=== PATIENT | male | born 1995 | race Caucasian/White ===

== ENCOUNTER 2022-04-11 03:24 | Emergency (ER) | payer OTHER, SELFPAY ==
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
[2022-04-11 03:28] VITALS: BP 160/80; PULSE 108; O2SAT 96
[2022-04-11 03:40] VITALS: BP 148/77; PULSE 106; RESP 18; TEMP 37; O2SAT 97
--- OUTSIDE RECORDS SUMMARY | 2022-04-11 03:55 | XMS_ITS | Continuity of Care Document ---
:1995 Author Organization [facility] Address [address] [place] [address]- Care Team Providers Name Role Phone Gold Pinon MD, Pradip Tomlinson Primary Care Physician [phone] [facility] Date(s): 04/23/20 - 04/23/[address] [address]- Discharge Disposition: A-D/C Home Attending Physician: Teodoro Kruse MD Admitting Physician: Teodoro Kruse MD Referring Physician: Not on Staff, Referring MD Allergies, Adverse Reactions, Alerts Substance Reaction Severity Status NKA Active Immunizations Given and Recorded Vaccine Date Status Refusal Reason Varicella Virus Vaccine 02/03/08 Given Varicella Virus Vaccine 02/15/98 Given Tet/Diphth/Acel, Pertussis (oldterm)1 02/03/08 Given Meningococcal Conjugate Vaccine 02/03/08 Given Measles/Mumps/Rubella Virus Vaccine 12/02/01 Given Measles/Mumps/Rubella Virus Vaccine 02/15/98 Given Poliovirus Vaccine, Inactivated 12/02/01 Given Poliovirus Vaccine, Inactivated2 06/28/98 Given Poliovirus Vaccine, Inactivated 97 Given Poliovirus Vaccine, Inactivated 97 Given Diphth/Pertussis,Acel/Tetanus (oldterm) 12/02/01 Given Diphth/Pertussis,Acel/Tetanus (oldterm) 06/28/98 Given Diphth/Pertussis,Acel/Tetanus (oldterm) 97 Given Diphth/Pertussis,Acel/Tetanus (oldterm) 97 Given Diphth/Pertussis,Acel/Tetanus (oldterm) 97 Given Haemophilus B Conj Vaccine (oldterm) 06/28/98 Given Haemophilus B Conj Vaccine (oldterm) 97 Given Haemophilus B Conj Vaccine (oldterm) 97 Given Haemophilus B Conj Vaccine (oldterm) 97 Given Hepatitis B Vaccine (old term) 97 Given Hepatitis B Vaccine (old term) 97 Given Hepatitis B Vaccine (old term) 97 Given 1Admin Note: VIS 11/25/20052Admin Note: POLIO(oral) Medications Adderall XR 30 mg oral capsule, extended release 1 capsule, By Mouth, Daily in AM, # 60 capsule, 0 Refills, ADHD Start Date: 06/19/09 Status: OrderedDebrox 6.5% solution 5 drops, Ears, Both, 3 times a day, for 7 days, # 30 mL, 0 Refills, Acute 04/30/20 21:41:00 EST, 04/23/20 21:41:00 EST, Solution, [facility]/pharmacy #[id number], Partial fill upon patient request if the prescription is for a schedule II opioid drug., 5 drops Ears... Start Date: 04/23/20 Stop Date: 04/30/20 Status: OrderedDebrox Earwax Removal Kit 6.5% Otic Solution 5 drops, Ears, Both, 3 times a day, for 10 days, # 15 mL, 0 Refills, Acute 05/03/20 21:40:00 EST, 04/23/20 21:40:00 EST, Otic Solution, [id number], Partial fill upon patient request ifthe prescription is for a schedule II opioid drug... Start Date: 04/23/20 Stop Date: 05/03/20 Status: OrderedFioricet 325 mg-50 mg-40 mg oral tablet 2 tablet, By Mouth, Every 4 hours, # 30 tablet, 0 Refills, Maintenance, 10/01/14 13:02:39 Start Date: 10/01/14 Status: OrderedToradol Inj 15 mg, Injection, IV Push Slowly, Once, STAT, 04/23/20 19:53:00 EST, Stop date 04/23/20 19:53:00 EST Start Date: 04/23/20 Stop Date: 04/23/20 Status: Completed Problem List Condition Effective Dates Status Health Status Informant Attention deficit disorder(Confirmed) Active Finger fracture(Confirmed) Active Infection- 3rd digit R hand(Confirmed) Active Migraine without aura(Confirmed) Active Somnambulism(Confirmed) Active Vitiligo(Confirmed) Active Vital Signs Most recent to oldest 1 2 3 [Reference Range]: Height 172 cm 172 cm 172 cm (04/23/20 8:29 PM) (04/23/20 7:04 PM) (04/23/20 7:0 2 PM) Weight 68.7 kg 68.7 kg 68.7 kg (04/23/20 8:29 PM) (04/23/20 7:04 PM) (04/23/20 7:0 2 PM) Oxygen Saturation [94-100 %] 98 % 98 % 99 % (04/23/20 10:00 PM) (04/23/20 8:29 PM) (04/23/20 7: 02 PM) Pulse Rate [55-90 bpm] 86 bpm 97 bpm 94 bpm (04/23/20 10:00 PM) *H* *H* (04/23/20 8:29 PM) (04/23/20 7:02 PM) Body Mass Index [18.5-24.99] 23.22 23.22 (04/23/20 8:29 PM) (04/23/20 7:02 PM) Blood Pressure [90-138/55-84 126/79 mm Hg 124/65 mm Hg 127 /98 mm Hg mm Hg] (04/23/20 10:00 PM) (04/23/20 8:29 PM) (04/23/20 7: 02 PM) Respiratory Rate [16-30 18 br/min 16 br/min 16 br/mi n br/min] (04/23/20 10:00 PM) (04/23/20 8:53 PM) (04/23/20 8: 29 PM) Temperature [96.8-100.4 DegF] 97.7 DegF (04/23/20 7:02 PM) Mode of Delivery (Oxygen) Room air Room air Room a ir (04/23/20 10:00 PM) (04/23/20 8:29 PM) (04/23/20 7: 02 PM) Blood pressure sites Arm, left Arm, left Arm, left (04/23/20 10:00 PM) (04/23/20 8:29 PM) (04/23/20 7: 02 PM) Temperature Route Temporal (04/23/20 7:02 PM) Dry Weight 68.7 kg 68.7 kg 68.7 kg (04/23/20 8:29 PM) (04/23/20 7:04 PM) (04/23/20 7:0 2 PM) Weight Obtained Via Standing scale (04/23/20 7:02 PM) Dry Weight Obtained Via Standing scale (04/23/20 7:02 PM) Social History Social History Type Response Smoking Status Current every day smoker entered on: 07/13/14 Sex
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
[2022-04-11 05:55] VITALS: BP 116/69; PULSE 71; RESP 16; TEMP 36.4; O2SAT 96
[2022-04-11 06:31] VITALS: BP 120/78; PULSE 70; RESP 18; O2SAT 98
== END 2022-04-11 06:35 | disposition home or self-care (01) ==
PROVIDERS: Emergency Provider Internal Medicine; PCP Internal Medicine
DX: S09.90XA Unspecified injury of head, initial encounter (principal); Y04.2XXA Assault by strike against or bumped into by another person, initial encounter; Y93.89 Activity, other specified; Y92.9 Unspecified place or not applicable; Y99.9 Unspecified external cause status
CPT/HCPCS: 70450; 99284

== ENCOUNTER 2023-10-25 18:49 | Emergency (ER) | payer OTHER, SELFPAY ==
--- NOTE | ~2023-10-25 | XR_ITS ---
EXAMINATION: XR LUMBOSACRAL SPINE CLINICAL INFORMATION: Pain. Injury. COMPARISON: None available. TECHNIQUE: Three views of the lumbosacral spine. FINDINGS: The vertebral bodies and posterior elements are normal. The disc spaces are preserved and the vertebral alignment is normal. The paraspinal soft tissues are normal. XR/XR lumbar spine 2-3V IMPRESSION: Unremarkable examination.
[2023-10-25 19:02] VITALS: BP 122/72; PULSE 84; RESP 18; TEMP 36.7; O2SAT 98; BMI 26.1
--- NOTE | 2023-10-25 19:04 | ED.GENADULT ---
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 felt pop in his lower back this happened just prior to arrival no radiation of the pain no paresthesia in the lower no history of prior low back pain Related Data Previous Rx's ?Medication ?Instructions ?Recorded cyclobenzaprine 10 mg tablet 10 mg PO Q8H #20 tabs 10/25/23 tramadol 50 mg tablet 50 mg PO Q6H PRN pain #20 tabs 10/25/23 Allergies Allergy/AdvReac Type Severity Reaction Status Date / Time aspirin [ASPIRIN] Allergy Unknown GI UPSET Unverified 10/25/23 19:04 NSAIDS (Non-Steroidal Allergy Unknown GI UPSET Unverified 10/25/23 19:04 Anti-Inflamma [NSAIDS (NON-STEROIDAL ANTI-INFLAMMA] Review of Systems Review of Systems: Yes all other systems are reviewed and are negative [facility] Social History Social History Alcohol intake: current Alcohol intake frequency: a few times a month Alcohol type: beer and hard liquor Smoked in Last 30 Days: No Advance Directives: No Advance Directives Information Provided: Yes Do you have a plan to hurt others: No Plan Physical Exam ED Vital Signs: BMI result Body Mass Index 26.1 Appearance: Alert. Oriented X3. No acute distress. ENT: Pharynx normal. Oral Mucosa moist Neck: Normal inspection. Neck supple. CVS: Normal heart rate and rhythm. Pulses normal. Respiratory: No respiratory distress. Equal air entry bilateral, no wheezing/rales/rhonchi Abdomen: Soft and nontender. Bowel sounds are present, no mass palpable, no CVA tenderness Skin: Skin warm and dry. Normal skin color. Normal skin turgor. Extremities: No lower extremity edema. No calf tenderness back: Diffuse tenderness left spinal area SLR negative bilaterally sensation intact gait normal no vertebral tenderness Neuro: Oriented X 3. No motor deficit. No sensory deficit.No cerebellar signs , cranial nerves II-XII intact Course Course Course Narrative: RME performed by Yamila Tsang, PA-C. Patient is a 28 year old assigned male at presenting to the emergency department with low back pain. 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 Detailed physical exam and review of systems are deferred to the purchase analyst. Imaging ordered. Patient placed back in the waiting room pending room availability and results. Medications Administered Discontinued Medications Generic Name Dose Route Start Last Admin Trade Name Freq PRN Reason Stop Dose Admin Cyclobenzaprine HCl 10 mg 10/25/23 21:08 10/25/23 21:18 Cyclobenzaprine Hcl 10 Mg Tablet PO 10/25/23 21:09 10 mg ONCE ONE Administration Tramadol HCl 50 mg 10/25/23 21:08 10/25/23 21:17 Tramadol Hcl 50 Mg Tablet PO 10/25/23 21:09 50 mg ONCE ONE Administration Medical Decision Making Medical Decision Making MDM Narrative: Patient with lower back strain no signs of spinal cord injury with discharge patient home advised to follow with PCP Discharge Plan Discharge Clinical Impression: Strain of lumbar region Patient Disposition: Home, Self-Care Instructions: Acute Low Back Pain (ED) Additional Instructions: Take pain medication muscle relaxant as prescribed Follow with PCP if pain gets worse/bladder bowel incontinence Prescriptions: New cyclobenzaprine 10 mg tablet 10 mg PO Q8H Qty: 20 0RF tramadol 50 mg tablet 50 mg PO Q6H PRN (Reason: pain) Qty: 20 0RF Stand Alone Forms: Work/School Release Interventions: ED Discharge Assessment Last Done: 10/25/23 21:49 Discharge Date/Time: 10/25/23 21:51 Print Language: Mohawk
--- OUTSIDE RECORDS SUMMARY | 2023-10-25 19:30 | XMS_ITS | Continuity of Care Document ---
Author Organization [facility] Address [address] [place] [address]- Care Team Providers Care Director Treasurer Name Role Phone Gold Pinon MD, Pradpi Tomlinson Primary Care Physicia n Encounter [facility] Date(s): 06/19/22 - 06/19/[address] [address]- Discharge Disposition: A-D/C Home Attending Physician: Willard Magaña MD Admitting Physician: Willard Magaña MD Referring Physician: Not on Staff, Referring MD Allergies, Adverse Reactions, Alerts No Known Allergies Immunizations Given and Recorded Vaccine Date Status Refusal Reason Varicella Virus Vaccine 02/03/08 Given Varicella Virus Vaccine 02/15/98 Given Tet/Diphth/Acel, Pertussis (oldterm) 1 02/03/08 Gi charo Meningococcal Conjugate Vaccine 02/03/08 Given Measles/Mumps/Rubella Virus Vaccine 12/02/01 Given Measles/Mumps/Rubella Virus Vaccine 02/15/98 Given Poliovirus Vaccine, Inactivated 12/02/01 Given Poliovirus Vaccine, Inactivated 2 06/28/98 Given Poliovirus Vaccine, Inactivated 97 Given Poliovirus Vaccine, Inactivated 97 Given Diphth/Pertussis,Acel/Tetanus (oldterm) 12/02/01 G iven Diphth/Pertussis,Acel/Tetanus (oldterm) 06/28/98 G iven Diphth/Pertussis,Acel/Tetanus (oldterm) 97 G iven Diphth/Pertussis,Acel/Tetanus (oldterm) 97 G iven Diphth/Pertussis,Acel/Tetanus (oldterm) 97 G iven Haemophilus B Conj Vaccine (oldterm) 06/28/98 Give n Haemophilus B Conj Vaccine (oldterm) 97 Give n Haemophilus B Conj Vaccine (oldterm) 97 Give n Haemophilus B Conj Vaccine (oldterm) 97 Give n Hepatitis B Vaccine (old term) 97 Given Hepatitis B Vaccine (old term) 97 Given Hepatitis B Vaccine (old term) 97 Given 1Admin Note: VIS 11/25/2005 2Admin Note: POLIO(oral) Medications Adderall XR 30 mg oral capsule, extended release 1 capsule, By Mouth, Daily in AM, # 60 capsule, 0 Refills, ADHD Start Date: 06/19/09 Status: Ordered Fioricet 325 mg-50 mg-40 mg oral tablet 2 tablet, By Mouth, Every 4 hours, # 30 tablet, 0 Refills, Maintenance, 10/01/14 13:02:39 Start Date: 10/01/14 Status: Ordered Problem List Condition Confirmation Course Effective Dates Status Health St [facility] Informant Attention deficit disorder Confirmed Active Finger fracture Confirmed Active Infection- 3rd digit R hand Confirmed Active Migraine without aura Confirmed Active Somnambulism Confirmed Active Vitiligo Confirmed Active Results Radiology Reports * Exam Date Time Procedure Performing Provider Status 06/19/22 11:41 AM Chest 2 Views Frontal and Lat Kayleen Paula (Verified) Notes: (Chest 2 Views Frontal and Lat) Reason For Exam: Chest Pain;Other: RESULT: Chest 2 Views Frontal and Lat Chest 2 Views Frontal and Lat HX OF PRESENT ILLNESS: Central, non-radiating chest pain that began earlier this morning; states hefeels the majority of his pain with exhalation. Denies assoc. SOB, lightheadedness, dizziness. No known medical problems COMPARISON: 05/11/2018. FINDINGS: LINES AND TUBES: None. LUNGS AND PLEURA: Clear lungs. Normal pulmonary vascularity. No pleural effusion. No pneumothorax. HEART, MEDIASTINUM AND ALDO: Heart is normal in size. Normal mediastinal and hilar contour. BONES AND SOFT TISSUES: No acute abnormality. IMPRESSION: No acute cardiopulmonary process. I have personally reviewed the images and I agree with this report. WSN: [id number] Ordering Physician: Teodoro Kruse Dictated By: Alexander Rangel MD Dictated Date/Time: 06/19/22 11:47 a Reviewed By: Jeremías Perez MD, V Signed By: Jeremías Perez MD, V Signed Date/Time: 06/19/22 11:52 am Transcribed By: ESPERANZA Transcribed Date/Time: 06/19/22 11:45 am Vital Signs Most recent to oldest [Reference Range]: 1 2 Height 170 cm (06/19/22 2:15 PM) 170 cm (06/19/22 11:26 AM) Weight 74.8 kg (06/19/22 2:15 PM) 74.8 kg (06/19/22 11:26 AM) Oxygen Saturation [94-100 %] 98 % (06/19/22 2:15 PM) 100 % (06/19/22 11:26 AM) Pulse Rate [55-90 bpm] 95 bpm *H* (06/19/22 2:15 PM) 87 bpm (06/19/22 11:26 AM) Body Mass Index [18.5-24.99 kg/m2] 25.88 kg/m2 *H* (06/19/22 2:15 PM) Blood Pressure [90-138/55-84 mm Hg] 118/ 67mm Hg (06/19/22 2:15 PM) 139/79mm Hg *H* (06/19/22 11:26 AM) Respiratory Rate [16-30 br/min] 18 br/mi n (06/19/22 2:15 PM) 16 br/min (06/19/22 11:26 AM) Temperature [96.8-100.4 DegF] 97 DegF (06/19/22 11:26 AM) Mode of Delivery (Oxygen) Room air (06/19/22 2:15 PM) Room air (06/19/22 11:26 AM) Blood pressure sites Arm, left (06/19/22 2:15 PM) Arm, right (06/19/22 11:26 AM) Temperature Route Oral (06/19/22 11:26 AM) Dry Weight 74.8 kg (06/19/22 2:15 PM) 74.8 kg (06/19/22 11:26 AM) Dry Weight Obtained Via Standing scale (06/19/22 11:26 AM) Social History Social History Type Response Smoking Status Current every day quinn simeon entered on: 07/13/14 Sex Note * Gómez MARTIN, Willard: PERFORM Event Display: Patient Education Leaflets Authored Date: [id number] Bronchitis, No Antibiotics (Adult) ?? [id number] Bronchitis, No Antibiotics (Adult) Bronchitis is inflammation and swelling of the air passages (bronchial tubes) in your lungs. This is often caused by an infection. Your bronchitis was caused by a virus.??Symptoms include a dry, hacking cough that is worse at night. The cough may bring up yellow-green mucus. You may also feel shortof breath or wheeze. Other symptoms may include tiredness, chest discomfort, fever, and chills. This illness can be spread to other people in the first few days. It is spread through the air by coughing and sneezing. It is also spread by direct contact. This means touching the sick person and then touching your own eyes, nose, or mouth. Bronchitis that is caused by a virus is often not treated with antibiotic medicine. Instead, medicines may be given to help relieve symptoms. Symptoms can last up to 2 weeks. The cough may last much longer. Home care Follow these guidelines when caring for yourself at home: ??? If your symptoms are severe, rest at home for the first 2 to 3 days. When you go back to your daily tasks, don't let yourself get too tired. ??? Do not smoke. Stay away from secondhand smoke. ??? You may use bzxw-zce-[id number] medicine to control fever or pain. Or use another pain medicine as prescribed.??If you have chronic liver or kidney disease or have ever had a stomach ulcer or bleeding in your stomach or intestines, talk with your healthcare provider before using these medicines. Also talk to your provider if you are taking medicine to prevent blood clots. Aspirin should never be taken by anyone under age 18 who has a virus or fever. It may cause severe liver or brain damage. ??? Your body needs a lot of fluids now. Drink 6 to 8 glasses of fluids per day. This includes water, soft drinks, sports drinks, juices, tea, or soup. Extra fluids will help loosen mucus in your nose and lungs. ??? Your appetite may be low. A light diet is fine. ??? Zpjx-lca-dfllulv cough, cold, and sore-throat medicines will not shorten the tierney gth of the illness. But they may help to reduce your symptoms. Don't use decongestants if you have high blood pressure. ?? Follow-up care Follow up with your healthcare provider, or as advised. If you had an X-ray or ECG (electrocardiogram), a specialist will review it. You will be told of any results that may affect your care. Ask your healthcare provider about the pneumococcal vaccines and a yearly flu shot. There are 2 kinds of pneumococcal vaccines. You may need both. You???re at higher risk of lung infection if any of these apply to you: ??? You are age 65 or older ??? You have a chronic lung disease ??? You have condition that affects your immune system ??? You smoke ?? When to get medical care Call your healthcare provider right away if you have any of these: ??? Fever of 100.4??F (38??C) orhigher ??? Coughing up more mucus ??? Facial pain or ear pain ??? Mild weakness, drowsiness, headache, or a stiff neck ?? Call 911 Call 911 if any of these occur: ??? Coughing up blood ??? Weakness, drowsiness, headache, or stiff neck that get worse ??? Trouble breathing, wheezing, or pain with breathing ??? Lips or skin looks blue, purple, or reid in color ??? Feeling of doom ?? Last Reviewed Date: 2021 ?? [id number] [employer] All rights reserved. This information is not intended as a substitute for professional medical care. Always follow your healthcare professional's instructions. ?? * BHSPowerscribe , CIS S: TRANSCRIROSEMARIE Rangel MD, med: SIGN Chris MARTIN, Jeremías V: VERIFY Event Display: Result: Authored Date: [id number] Chest 2 Views Frontal and Lat HX OF PRESENT ILLNESS: Central, non-radiating chest pain that began earlier this morning; states hefeels the majority of his pain with exhalation. Denies assoc. SOB, lightheadedness, dizziness. No known medical problems COMPARISON: 05/11/2018. FINDINGS: LINES AND TUBES: None. LUNGS AND PLEURA: Clear lungs. Normal pulmonary vascularity. No pleural effusion. No pneumothorax. HEART, MEDIASTINUM AND ALDO: Heart is normal in size. Normal mediastinal and hilar contour. BONES AND SOFT TISSUES: No acute abnormality. IMPRESSION: No acute cardiopulmonary process. I have personally reviewed the images and I agree with this report. WSN: [id number] Ordering Physician: Teodoro Kruse Dictated By: Alexander Rangel MD Dictated Date/Time: 06/19/22 11:47 a Reviewed By: Jeremías Perez MD, V Signed By: Jeremías Perez MD, V Signed Date/Time: 06/19/22 11:52 am Transcribed By: ESPERANZA Transcribed Date/Time: 06/19/22 11:45 am Patient Care team information Care Team Personnel Name: Gold Pinon MD, Pradip Tomlinson Position: [facility] General Pediatrics MD Member Role: PCP Address: Address: [address] [place] [id number]- Name: Elza Barrera Position: [facility] Outreach Member Role: Lifetime Consulting Physician Name: Lona Vasques Position: [facility] ED OA Member Role: Aoc Director Combat Plans Officer Name: Willard Magaña MD Position: [facility] ED Medicine MD Member Role: Admitting Physician Address: Address: [address] [place] [address] [place] [address]- [place] Name: Fortino Eckert RN Position: [facility] ED RN W/OE and Tasks Member Role: Patient Care Provider Care Team Related Persons Name: TAN VERDE Address: home [address] [place] [address] Name: GD GONSALEZ Address: home [address] [place] [id number]
[2023-10-25] MEDS: traMADoL HCL 50 MG TABLET PO (21:17)
[2023-10-25] MEDS: Cyclobenzaprine HCl 10 MG TABLET PO (21:18)
[2023-10-25 21:49] VITALS: BP 122/72; PULSE 84; RESP 18; TEMP 36.7; O2SAT 98
== END 2023-10-25 21:51 | disposition home or self-care (01) ==
PROVIDERS: Emergency Provider Internal Medicine; PCP Internal Medicine
DX: S39.012A Strain of muscle, fascia and tendon of lower back, initial encounter (principal); X58.XXXA Exposure to other specified factors, initial encounter; Y93.9 Activity, unspecified; Y92.89 Other specified places as the place of occurrence of the external cause; Y99.0 Civilian activity done for income or pay
CPT/HCPCS: 72100; 99283; 99284

== ENCOUNTER 2024-02-15 10:56 | Emergency (ER) | payer OTHER, SELFPAY ==
[2024-02-15 11:11] VITALS: BP 110/63; PULSE 77; RESP 16; TEMP 36.6; O2SAT 99; BMI 25.2
--- NOTE | 2024-02-15 11:19 | ED_ITS ---
HPI - General Adult General Chief complaint: Animal Bite Stated complaint: Dog bite Time Seen by Provider: 02/15/24 13:21 Source: patient Mode of arrival: ambulatory Limitations: no limitations History of Present Illness ED Provider: Kory Fleming PA-C HPI narrative: 29-year-old male healthy presents to ED for dog bite to left arm and right buttock. Patient states he was cutting trees and he landed in the neighbor's yard to warp picker the branches and then a neighbor's dog attacked him. 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 Related Data Previous Rx's ?Medication ?Instructions ?Recorded cyclobenzaprine 10 mg tablet 10 mg PO Q8H #20 tabs 10/25/23 tramadol 50 mg tablet 50 mg PO Q6H PRN pain #20 tabs 10/25/23 amoxicillin 875 mg-potassium 1 tab PO Q12H 10 days #20 tabs 02/15/24 clavulanate 125 mg tablet Allergies Allergy/AdvReac Type Severity Reaction Status Date / Time aspirin [ASPIRIN] Allergy Unknown GI UPSET Verified 02/15/24 11:14 NSAIDS (Non-Steroidal Allergy Unknown GI UPSET Verified 02/15/24 11:14 Anti-Inflamma [NSAIDS (NON-STEROIDAL ANTI-INFLAMMA] Review of Systems 2 Review of Systems: left fore arm and right buttock bite Yes all other systems are reviewed and are negative [facility] Social History Social History Alcohol intake: current Alcohol intake frequency: a few times a month Alcohol type: beer and hard liquor Advance Directives: No Advance Directives Information Provided: No Do you have a plan to hurt others: No Plan Physical Exam ED Vital Signs: Vital Signs - 24 hr 02/15/24 11:11 02/15/24 14:00 02/15/24 15:54 Temperature 97.8 F 98.6 F 98.6 F Pulse Rate 77 68 68 Respiratory Rate 16 20 20 Blood Pressure 110/63 113/60 113/60 Pulse Oximetry 99 98 98 Oxygen Delivery Method Room Air Room Air Room Air BMI result Body Mass Index 25.2 Const General: cooperative, healthy appearing, comfortable, no acute distress, well developed, alert, awake and Physically active Orientation/consciousness: patient oriented x3 [facility] Head: Yes normal to inspection, Yes No palpable skull fracture present, Yes normocephalic, Yes atraumatic and No abrasion Eyes General: appearance normal, both eyes and all related structures Neck Neck: Yes normal visual inspection, Yes full ROM, Yes no lymphadenopathy, Yes no meningeal signs, Yes trachea midline, Yes supple, No anterior neck swelling and No tender Chest Chest palpation & inspection: normal inspection of the chest and normal palpation of entire chest wall Resp Effort & Inspection: normal respiratory effort and able to speak in complete sentences Auscultation: clear to auscultation bilaterally Cardio Heart sounds: S1 normal heart sound present and S2 normal heart sound present GI Inspection: Yes normal to inspection Palpation (GI): Soft to palpation, not firm, nontender, no guarding and not rigid General: No CVA tenderness and Yes no CVA tenderness Back/Spine/Pelvis Back: no CVA tenderness, No CVA tenderness and No back tenderness Skin General skin exam: no rashes or lesions noted, elasticity normal and turgor normal Full body images: 2 1. Multiple abrasion bites. Negative for active bleeding. Negative for bluish black discoloration. Negative for swelling. Rest of extremity normal. Motor and neurovascular exam intact Neuro General: patient oriented x3, gait normal, tone normal, moves all extremities, Normal light touch and pain sensation, no meningeal signs, no focal motor deficits, CN's II-XI intact bilaterally and normal sensation to monofilament Extrem Elbow/forearm/wrist images: 2 1. superficial abrasions. No active bleeding. Negative for signs of tendon/nerve injury. Negative for ecchymosis. Vascular, motor,/neuro exam intact 2. superficial abrasions. No active bleeding. Negative for signs of tendon/nerve injury. Negative for ecchymosis. Vascular, motor,/neuro exam intact Psych Appearance: grossly normal, well kempt and not disheveled Course Course Course Narrative: RME, this is a rapid medical exam performed by Ahmet Collins please refer to primary provider for complete H&P- 29-year-old male presents for evaluation of a dog bite. He was patent on his buttocks hand. He is unsure if dog is vaccinated. He was bit by his neighbor's dog. Patient he will be brought to the fast track area Medications Administered Discontinued Medications Generic Name Dose Route Start Last Admin Trade Name Fanaticallq PRN Reason Stop Dose Admin Diphtheria/Tetanus/Acell Pertussis 0.5 ml 02/15/24 14:23 02/15/24 15:37 Diphth,Pertus(Acell),Tet Adult 0.5 Ml Syringe IM 02/15/24 14:24 0.5 ml .ONCE ONE Administration Rabies Immune Globulin 1,460 unit 02/15/24 14:23 02/15/24 15:40 Rabies Immune Globulin/Pf 900 Unit/3 Ml Vial 20 unit/kg (1460 unit) 02/15/24 14:24 1,460 unit IM Administration ONCE ONE Rabies Vaccine 1 ml 02/15/24 14:23 02/15/24 15:38 Rabies Vaccine (Pcec)/Pf 1 Ml Vial IM 02/15/24 14:24 1 ml .ONCE ONE Administration Medical Decision Making Medical Decision Making MDM Narrative: 29-year-old male presents to ED after being bitten by a neighbor's dog. Neighbor unsure if his dog is up-to-date with with rabies vaccines. Dog bite 2 very superficial. Patient is agreeable to rabies vaccination and immunoglobulin since he states his his neighbor is unreliable and although live next door is hard to reach or contact. Patient explained worrisome signs and informed to return to the ED immediately. Patient prescribed antibiotics Differential Diagnosis Differential Diagnoses: The differential diagnosis associated with the presentation includes (Dog bite,) Admission/Observation Consideration of admission/observation: Escalation of care including admission/observation considered Independent Historian Clinical information obtained from an independent historian. History obtained from or confirmed by: Parent and Other (patient) External Record Review External record reviewed: Other (prior visits) Discharge Plan Discharge Clinical Impression: Dog bite Patient Disposition: Home, Self-Care Instructions: Animal Bite (ED) Additional Instructions: Rabies follow up with the [facility]: Upon discharge from the ED today, you will be contacted by the Infusion Center to schedule your follow up Rabies vaccines. You will need a total of 3 more injections. If for some reason you do not receive a call, please call the Infusion Center directly at [phone]. Follow up with your primary care provider after completion of the vaccine to have a titer drawn to ensure the vaccines effectiveness. Return to the ED immediately for any bluish black discoloration, redness, pus discharge, foul odor, red streaks, fever, chills, or any other concerning symptoms. Also follow up with primary care provider Prescriptions: New amoxicillin-pot clavulanate 875-125 mg tablet 1 tab PO Q12H 10 Days Qty: 20 0RF No Action cyclobenzaprine 10 mg tablet 10 mg PO Q8H Qty: 20 0RF tramadol 50 mg tablet 50 mg PO Q6H PRN (Reason: pain) Qty: 20 0RF Stand Alone Forms: Work/School Release Interventions: ED Discharge Assessment Last Done: 02/15/24 15:54 Discharge Date/Time: 02/15/24 15:58 Print Language: Khmer
[2024-02-15 14:00] VITALS: BP 113/60; PULSE 68; RESP 20; TEMP 37; O2SAT 98
[2024-02-15] MEDS: Diphth,Pertus(ACell),Tet Adult 0.5 ML SYRINGE IM (15:37)
[2024-02-15] MEDS: Rabies Vaccine (PCEC)/PF 1 ML VIAL IM (15:38)
[2024-02-15] MEDS: Rabies Immune Globulin/PF 900 UNIT/3 ML VIAL 1460 UNIT IM (15:40)
[2024-02-15 15:54] VITALS: BP 113/60; PULSE 68; RESP 20; TEMP 37; O2SAT 98
== END 2024-02-15 15:58 | disposition home or self-care (01) ==
PROVIDERS: Emergency Provider Emergency Medicine; PCP Internal Medicine
DX: S41.152A Open bite of left upper arm, initial encounter (principal); S31.815A Open bite of right buttock, initial encounter; W54.0XXA Bitten by dog, initial encounter; Y93.H2 Activity, gardening and landscaping; Y92.096 Garden or yard of other non-institutional residence as the place of occurrence of the external cause; Y99.9 Unspecified external cause status; Z20.3 Contact with and (suspected) exposure to rabies; Z23 Encounter for immunization
CPT/HCPCS: 90375; 90471; 90675; 90715; 96372; 99283; 99284